=== PATIENT | female | born 1955 | race Caucasian/White ===

== ENCOUNTER 2017-12-13 06:24 | Inpatient (IN) | payer MEDICAID ==
[~2017-12-13] VITALS: Ht 162.6 cm; Wt 62.6 kg
[2017-12-13] VITALS (48 sets, daily range): BP systolic 120–150; BP diastolic 63–82
[2017-12-13] MEDS ORDERED: LACTATED RINGERS 1,000 ML IV SCH (08:20)
[2017-12-13] MEDS ORDERED: NORMAL SALINE 0.9% 10 ML SYR ONE (08:35)
[2017-12-13] MEDS ORDERED: BACITRACIN 50,000 UNITS/VIAL ONE (08:35)
[2017-12-13] MEDS ORDERED: THROMBIN (BOVINE) 5000 UNITS/VIAL TOP ONE (08:35)
[2017-12-13] MEDS ORDERED: LIDOCAINE HCL/EPINEPHRINE 1%-EPI 1:100,000 20 ML VIAL ONE (08:35)
[2017-12-13] MEDS ORDERED: GABA100C PO (08:55)
[2017-12-13] MEDS ORDERED: ASPI-1159 PO (08:55)
[2017-12-13] MEDS ORDERED: GELATIN SPONGE,ABSORBABLE SZ 100 ONE (09:01)
[2017-12-13] MEDS ORDERED: NEOSTIGMINE METHYLSULFATE 1MG/ML 10 ML VIAL ONE (10:34)
[2017-12-13] MEDS ORDERED: ROCURONIUM BROMIDE 10MG/ML VIAL 5ML IV ONE (10:34)
[2017-12-13] MEDS ORDERED: PROPOFOL 200MG/20ML VIAL IV ONE (10:34)
[2017-12-13] MEDS ORDERED: GLYCOPYRROLATE 0.2 MG/ML 2ML VIAL ONE ×2 (10:34→12:20)
[2017-12-13] MEDS ORDERED: FENTANYL CITRATE/PF 50MCG/ML 2ML VIAL ONE (10:34)
[2017-12-13] MEDS ORDERED: MIDAZOLAM HCL 2 MG/2 ML VIAL ONE ×2 (10:34→12:21)
[2017-12-13] MEDS ORDERED: DEXAMETHASONE 4MG/ML 1ML VIAL ONE (10:35)
[2017-12-13] MEDS ORDERED: ONDANSETRON HCL 4MG/2ML INJ ONE (10:35)
[2017-12-13] MEDS ORDERED: HYDROMORPHONE HCL/PF 2MG/ML CPJ IV PRN (11:00)
[2017-12-13] MEDS ORDERED: MEPERIDINE HCL/PF 25MG/ML CPJ IV PRN (11:00)
[2017-12-13] MEDS ORDERED: ONDANSETRON HCL 4MG/2ML INJ IV PRN ×2 (11:00→12:15)
[2017-12-13] MEDS ORDERED: LABETALOL 5MG/ML SYR 20 MG/4 ML SYRINGE IV PRN (11:00)
[2017-12-13] MEDS ORDERED: NICARDIPINE 100 MG in SODIUM CHLORIDE 0.9% 60 ML IV PRN (12:15)
[2017-12-13] MEDS ORDERED: HYDROMORPHONE PCA 10MG/50ML IV PRN (12:45)
[2017-12-13] MEDS ORDERED: NALOXONE INJ IV PRN (12:45)
[2017-12-13] MEDS ORDERED: ONDANSETRON INJ IV PRN (12:45)
[2017-12-13] MEDS ORDERED: DIPHENHYDRAMINE INJ IV PRN (12:45)
[2017-12-13] MEDS: DEXT 5%/LACTATED RINGERS 1,000 ML IV SCH ×2 (13:28→22:15)
[2017-12-13] MEDS ORDERED: NITROPRUSSIDE 50 MG in SODIUM CHLORIDE 0.9% 248 ML IV PRN (14:00)
[2017-12-13] MEDS ORDERED: CEFAZOLIN SODIUM 1000MG/VIAL IV SCH (14:00)
[2017-12-13] MEDS: CEFAZOLIN 1000MG PREMIX 50 ML IV SCH ×2 (14:29→21:11)
[2017-12-13] MEDS ORDERED: BISACODYL 5MG TABLET PO PRN (16:00)
[2017-12-13] MEDS ORDERED: IPRATROPIUM/ALBUTEROL 0.5-3(2.5)MG/3ML NEB HHN PRN (16:00)
[2017-12-13] MEDS: DEXAMETHASONE 4MG/ML 1ML VIAL IV SCH (17:28)
[2017-12-14] VITALS (95 sets, daily range): BP systolic 110–155; BP diastolic 50–96
[2017-12-14] MEDS: DEXAMETHASONE 4MG/ML 1ML VIAL IV SCH ×4 (00:07→17:42)
[2017-12-14] MEDS: DEXT 5%/LACTATED RINGERS 1,000 ML IV SCH ×3 (00:10→21:01)
[2017-12-14 06:03] LABS: HEMATOCRIT. 38.7 % (36.0-48.0); MEAN CORPUSCULAR VOLUME 92.6 fL (81.0-99.0); MEAN PLATELET VOLUME 7.8 fl (7.4-10.4); PLATELET 207 x1000/uL (130-400); RED BLOOD CELL COUNT 4.18 mill/uL (4.2-5.4); RED CELL DISTRIBUTION WIDTH 13.9 % (11.6-14.6)
[2017-12-14] MEDS: CEFAZOLIN 1000MG PREMIX 50 ML IV SCH ×3 (06:09→21:01)
[2017-12-14 06:18] LABS: CHLORIDE 106 mEq/L (98-107)
[2017-12-14 06:19] LABS: PHOSPHORUS 2.8 mg/dL (2.5-4.9)
[2017-12-14 07:57] LABS: PLATELET ESTIMATE NORMAL
[2017-12-14] MEDS: NICOTINE 14MG PATCH TD SCH (08:59)
[2017-12-14] MEDS: DOCUSATE SODIUM 100MG CAPSULE PO SCH ×2 (09:00→17:00)
[2017-12-15] VITALS (52 sets, daily range): BP systolic 117–168; BP diastolic 41–98
[2017-12-15 05:15] LABS: BASOPHILS % 0.1 % (0.0-2.0); HEMOGLOBIN. 12.4 g/dL (12.0-16.0); LYMPHOCYTES % 10.2 % (20.0-50.0); MEAN CORPUSCULAR VOLUME 92.8 fL (81.0-99.0); MEAN PLATELET VOLUME 7.9 fl (7.4-10.4); MONOCYTES % 7.8 % (2.0-8.0); NEUTROPHILS % 81.9 % (40.0-76.0); PLATELET 207 x1000/uL (130-400); RED BLOOD CELL COUNT 3.99 mill/uL (4.2-5.4)
[2017-12-15 05:22] LABS: CHLORIDE 108 mEq/L (98-107)
[2017-12-15] MEDS: CEFAZOLIN 1000MG PREMIX 50 ML IV SCH ×2 (06:30→13:33)
[2017-12-15] MEDS: DEXT 5%/LACTATED RINGERS 1,000 ML IV SCH (06:30)
[2017-12-15] MEDS: NICOTINE 14MG PATCH TD SCH (08:18)
[2017-12-15] MEDS: DOCUSATE SODIUM 100MG CAPSULE PO SCH ×2 (08:18→16:04)
[2017-12-15] MEDS ORDERED: THROAT LOZENGES-BENZOCAINE/MENTH/CETYLPYRD CL LOZENGES MM PRN (13:00)
[2017-12-15] MEDS: HYDROCODONE/ACETAMINOPHEN 10/325MG TABLET PO PRN ×2 (16:04→21:18)
[2017-12-16] VITALS: BP 123/67
[2017-12-16 04:00] VITALS: BP 144/65
[2017-12-16] MEDS: HYDROCODONE/ACETAMINOPHEN 10/325MG TABLET PO PRN (04:26)
[2017-12-16 07:11] LABS: BASOPHILS % 0.3 % (0.0-2.0); HEMATOCRIT. 39.4 % (36.0-48.0); HEMOGLOBIN. 13.5 g/dL (12.0-16.0); LYMPHOCYTES % 33.4 % (20.0-50.0); MEAN CORPUSCULAR HEMOGLOBIN 31.6 pg (28.0-32.0); MEAN PLATELET VOLUME 7.8 fl (7.4-10.4); MONOCYTES % 12.3 % (2.0-8.0); PLATELET 215 x1000/uL (130-400); RED BLOOD CELL COUNT 4.28 mill/uL (4.2-5.4); RED CELL DISTRIBUTION WIDTH 14.1 % (11.6-14.6)
[2017-12-16 07:38] LABS: CHLORIDE 106 mEq/L (98-107)
[2017-12-16 08:00] VITALS: BP 123/63
[2017-12-16] MEDS: DOCUSATE SODIUM 100MG CAPSULE PO SCH (08:35)
[2017-12-16] MEDS: MORPHINE SULFATE 4 MG/ML CPJ (NOT FOR IM USE) IV PRN ×3 (08:46→16:08)
[2017-12-16] MEDS: NICOTINE 14MG PATCH TD SCH (08:48)
[2017-12-16 12:00] VITALS: BP 115/62
[2017-12-16 15:41] VITALS: BP 115/62
[2017-12-16 16:08] VITALS: BP 115/62
== END 2017-12-16 16:25 | disposition home or self-care (01) | DRG 321 ==
LOC: OR 06:24 → MICUSO 06:25 → 6EST 12-15 15:11
PROVIDERS: ADMIT Internal Medicine; ATTEND Internal Medicine
PROC: 0RG10A0 Fusion of Cervical Vertebral Joint with Interbody Fusion Device, Anterior Approach, Anterior Column, Open Approach (ICD-10-PCS; principal; 2017-12-13 10:00)
DX: M48.02 Spinal stenosis, cervical region (principal); G82.50 Quadriplegia, unspecified; M47.12 Other spondylosis with myelopathy, cervical region; R65.10 Systemic inflammatory response syndrome (SIRS) of non-infectious origin without acute organ dysfunction; F17.210 Nicotine dependence, cigarettes, uncomplicated; Z90.49 Acquired absence of other specified parts of digestive tract; M47.22 Other spondylosis with radiculopathy, cervical region; D72.829 Elevated white blood cell count, unspecified; T38.0X5A Adverse effect of glucocorticoids and synthetic analogues, initial encounter
CPT/HCPCS: 36415; 72040; 80048; 83735; 84100; 86850; 86900; 88304; 88311; 95925; 95926; 95928; 95929; 97116; 97162; 97166; 97535; A4216; C1713; J0690; J1100; J1170; J2250; J2270; J2405; J2704; J2710; J3010; J3490; J7120; J7121; L0172